=== PATIENT | female | born 1950 | race Hispanic/Latino ===

== ENCOUNTER 2018-03-20 17:51 | Inpatient (IN) | payer OTHER, MEDICARE ==
[~2018-03-20] VITALS: Ht 157.5 cm; Wt 100.8 kg
[2018-03-20 18:14] LABS: BASOPHILS % (AUTO) 0.2 % (0.0-5.0); EOSINOPHILS % (AUTO) 0.1 % (0.0-8.0); HEMATOCRIT 37.9 % (36-48); MEAN CORPUSCULAR HEMOGLOBIN 24.1 pg (27.0-33.0); MEAN CORPUSCULAR HGB CONC 31.9 g/dL (32.0-36.0); MEAN CORPUSCULAR VOLUME 75.7 fL (79-99); MONOCYTES % (AUTO) 2.7 % (3.0-13.0); PLATELET COUNT (AUTO) 291 K/uL (130-400); RED BLOOD CELL COUNT(AUTO) 5.01 MIL/uL (4.00-5.50); RED CELL DISTRIBUTION WIDTH 17.5 % (11.0-15.5); WHITE BLOOD COUNT (AUTO) 22.1 K/uL (4.8-10.8)
[2018-03-20 18:27] LABS: CREATININE 0.8 mg/dL (0.5-1.5); POTASSIUM 4.3 mmol/L (3.5-5.1)
[2018-03-20 18:31] LABS: BILIRUBIN,TOTAL 0.5 mg/dL (0.2-1.0); TOTAL PROTEIN, SERUM 7.8 g/dL (6.0-8.3)
[2018-03-20] MEDS ORDERED: SODIUM CHLORIDE 0.9% 1000ML 1,000 ML IV ONE (18:54)
[2018-03-20] MEDS ORDERED: ONDANSETRON HCL 4 MG/2 ML VIAL ONE (18:54)
[2018-03-20] MEDS ORDERED: PROMETHAZINE HCL 25 MG/ML 1ML AMPULE IM ONE (20:32)
[2018-03-20 20:52] LABS: APPEARANCE,URINE Clear (CLEAR); BILIRUBIN,URINE Negative (NEGATIVE); COLOR,URINE Yellow (YELLOW); GLUCOSE, URINE (UA) Negative (NEGATIVE); KETONES,URINE Trace mg/dL (NEGATIVE); LEUKOCYTE ESTERASE ,URINE Negative (NEGATIVE); NITRATE,URINE Negative (NEGATIVE); OCCULT BLOOD,URINE Negative (NEGATIVE); PH,URINE 5.5 (5.0-8.0); PROTEIN,URINE Trace (NEGATIVE); UROBILINOGEN,URINE 0.2 mg/dL (0.2-1.0)
[2018-03-20 21:02] LABS: BACTERIA,URINE Rare /HPF (None Seen); RBC,URINE 0-1 /HPF (0-1); SQUAMOUS EPITHELIAL CELL,UR Rare /HPF (0-2); WBC,URINE 0-1 /HPF (0-1)
[2018-03-20] MEDS ORDERED: LISINOPRIL 5 MG TABLET ONE (22:39)
[2018-03-20] MEDS ORDERED: PHARMACY COMMUNICATION MISC SCH (23:45)
[2018-03-20] MEDS ORDERED: PROMETHAZINE HCL 25 MG/ML 1ML AMPULE IM PRN (23:45)
[2018-03-20] MEDS ORDERED: MORPHINE SULFATE 2 MG/ML 1ML SYG IVP PRN (23:45)
[2018-03-21] MEDS ORDERED: ZOSYN 3.375GM+NS 50ML 50 ML IV ONE ×2 (01:01→07:32)
[2018-03-21] MEDS ORDERED: SODIUM CHLORIDE 0.9% 100 ML IV ONE ×2 (01:02→07:32)
[2018-03-21] MEDS ORDERED: PROMETHAZINE HCL 25 MG/ML 1ML AMPULE IM ONE (02:52)
[2018-03-21 06:14] LABS: BASOPHILS % (AUTO) 0.5 % (0.0-5.0); EOSINOPHILS % (AUTO) 0.1 % (0.0-8.0); HEMATOCRIT 36.8 % (36-48); LYMPHOCYTES % (AUTO) 4.9 % (21.0-51.0); MEAN CORPUSCULAR HEMOGLOBIN 24.2 pg (27.0-33.0); MEAN CORPUSCULAR HGB CONC 32.2 g/dL (32.0-36.0); MEAN CORPUSCULAR VOLUME 75.2 fL (79-99); MONOCYTES % (AUTO) 4.9 % (3.0-13.0); NEUTROPHILS % (AUTO) 89.6 % (40.0-77.0); PLATELET COUNT (AUTO) 337 K/uL (130-400); RED CELL DISTRIBUTION WIDTH 17.5 % (11.0-15.5); WHITE BLOOD COUNT (AUTO) 22.6 K/uL (4.8-10.8)
[2018-03-21 06:31] LABS: CREATININE 0.9 mg/dL (0.5-1.5); POTASSIUM 3.4 mmol/L (3.5-5.1)
[2018-03-21 06:37] LABS: BILIRUBIN,TOTAL 0.5 mg/dL (0.2-1.0); TOTAL PROTEIN, SERUM 7.5 g/dL (6.0-8.3)
[2018-03-21] MEDS ORDERED: ACETAMINOPHEN 325 MG TAB PO PRN (11:45)
[2018-03-21] MEDS ORDERED: HYDRALAZINE HCL 20 MG/ML VIAL IV PRN (11:45)
[2018-03-21 12:13] VITALS: BP 149/65
[2018-03-21] MEDS: LACTATED RINGERS 1000ML 1,000 ML IV SCH ×2 (12:26→13:05)
[2018-03-21] MEDS: FAMOTIDINE/PF 20 MG/2 ML VIAL IV SCH ×2 (12:26→21:11)
[2018-03-21] MEDS: ZOSYN 3.375GM+NS 50ML 50 ML IV SCH ×2 (15:18→23:25)
[2018-03-21 15:42] VITALS: BP 126/57
[2018-03-21] MEDS ORDERED: LACTULOSE 20 GM/30 ML UDCUP PO PRN (19:30)
[2018-03-21 20:00] VITALS: BP 101/54
[2018-03-21 23:31] VITALS: BP 134/68
[2018-03-22 04:39] VITALS: BP 143/64
[2018-03-22] MEDS: ZOSYN 3.375GM+NS 50ML 50 ML IV SCH ×3 (06:04→22:44)
[2018-03-22 06:14] LABS: BASOPHILS % (AUTO) 0.7 % (0.0-5.0); EOSINOPHILS % (AUTO) 0.9 % (0.0-8.0); HEMATOCRIT 35.8 % (36-48); LYMPHOCYTES % (AUTO) 20.4 % (21.0-51.0); MEAN CORPUSCULAR HEMOGLOBIN 23.6 pg (27.0-33.0); MEAN CORPUSCULAR HGB CONC 30.7 g/dL (32.0-36.0); MEAN CORPUSCULAR VOLUME 76.8 fL (79-99); MONOCYTES % (AUTO) 8.1 % (3.0-13.0); NEUTROPHILS % (AUTO) 69.9 % (40.0-77.0); PLATELET COUNT (AUTO) 285 K/uL (130-400); RED BLOOD CELL COUNT(AUTO) 4.66 MIL/uL (4.00-5.50); RED CELL DISTRIBUTION WIDTH 17.6 % (11.0-15.5)
[2018-03-22 06:22] LABS: POTASSIUM 3.4 mmol/L (3.5-5.1)
[2018-03-22 08:39] VITALS: BP 149/73
[2018-03-22] MEDS: FAMOTIDINE/PF 20 MG/2 ML VIAL IV SCH ×2 (10:11→21:16)
[2018-03-22] MEDS: LACTATED RINGERS 1000ML 1,000 ML IV SCH ×2 (10:12→17:19)
[2018-03-22 11:28] VITALS: BP 156/70
[2018-03-22] MEDS ORDERED: POTASSIUM CHLORIDE 20 MEQ ERTAB PO PRN (14:00)
[2018-03-22] MEDS ORDERED: LIDOCAINE HCL-MPF 1% 2ML VIAL IVP PRN (14:00)
[2018-03-22] MEDS ORDERED: POTASSIUM CHLORIDE 20MEQ/100ML 100 ML IV PRN (14:00)
[2018-03-22] MEDS ORDERED: POTASSIUM CHLORIDE 10% ELIXIR 20 MEQ/15 ML UDCUP PO PRN (14:00)
[2018-03-22] MEDS ORDERED: GLUCAGON 1MG KIT 1 MG ML IM PRN (15:30)
[2018-03-22] MEDS ORDERED: DEXTROSE 50%-WATER 50 ML DISP.SYRIN IV PRN (15:30)
[2018-03-22 16:28] VITALS: BP 143/72
[2018-03-22] MEDS: INSULIN HUMULIN R 100 UNIT/ML 3ML SQ SCH ×2 (16:30→21:00)
[2018-03-22 19:49] VITALS: BP 127/52
[2018-03-22] MEDS ORDERED: FURO20TA4 PO (23:13)
[2018-03-22] MEDS ORDERED: METO-391 PO (23:13)
[2018-03-22] MEDS ORDERED: ATOR10TA69 PO (23:13)
[2018-03-22] MEDS ORDERED: LOSA1TAB37 PO (23:13)
[2018-03-22] MEDS ORDERED: LINA5TAB PO (23:13)
[2018-03-22] MEDS ORDERED: ESOM20CA31 PO (23:13)
[2018-03-23 00:03] VITALS: BP 142/65
[2018-03-23 04:28] VITALS: BP 164/70
[2018-03-23] MEDS: ZOSYN 3.375GM+NS 50ML 50 ML IV SCH (06:21)
[2018-03-23 06:23] LABS: BASOPHILS % (AUTO) 0.6 % (0.0-5.0); EOSINOPHILS % (AUTO) 0.4 % (0.0-8.0); HEMATOCRIT 35.1 % (36-48); LYMPHOCYTES % (AUTO) 13.2 % (21.0-51.0); MEAN CORPUSCULAR HEMOGLOBIN 24.4 pg (27.0-33.0); MEAN CORPUSCULAR HGB CONC 31.9 g/dL (32.0-36.0); MEAN CORPUSCULAR VOLUME 76.5 fL (79-99); NEUTROPHILS % (AUTO) 80.8 % (40.0-77.0); PLATELET COUNT (AUTO) 291 K/uL (130-400); RED BLOOD CELL COUNT(AUTO) 4.59 MIL/uL (4.00-5.50)
[2018-03-23 06:46] LABS: CREATININE 0.9 mg/dL (0.5-1.5); POTASSIUM 3.7 mmol/L (3.5-5.1)
[2018-03-23 07:30] VITALS: BP 146/73
[2018-03-23] MEDS: INSULIN HUMULIN R 100 UNIT/ML 3ML SQ SCH ×3 (07:30→16:43)
[2018-03-23] MEDS ORDERED: LINAGLIPTIN 5 MG TABLET PO SCH (09:00)
[2018-03-23] MEDS ORDERED: METOPROLOL TARTRATE 25 MG TAB PO SCH (09:00)
[2018-03-23] MEDS ORDERED: LOSARTAN/HYDROCHLOROTHIAZIDE 50-12.5MG TABLET PO SCH (09:00)
[2018-03-23] MEDS ORDERED: PANTOPRAZOLE SODIUM 40 MG TABLET.DR PO SCH (09:00)
[2018-03-23] MEDS ORDERED: FUROSEMIDE 20 MG TABLET PO SCH (09:00)
[2018-03-23 11:00] VITALS: BP 164/68
[2018-03-23 16:00] VITALS: BP 157/71
[2018-03-23] MEDS ORDERED: ATORVASTATIN CALCIUM 10 MG TABLET PO SCH (21:00)
== END 2018-03-23 17:09 | disposition home or self-care (01) | DRG 392 ==
LOC: EDH 17:51 → EDHIP 22:20 → INTOOBSV 22:20 → OBSVTOIN 22:20 → 3CH 03-21 11:04
PROVIDERS: ADMIT Internal Medicine Critical Care Medicine; ATTEND Internal Medicine Critical Care Medicine
DX: K52.9 Noninfective gastroenteritis and colitis, unspecified (principal); E11.9 Type 2 diabetes mellitus without complications; I10 Essential (primary) hypertension; E78.5 Hyperlipidemia, unspecified; Z88.0 Allergy status to penicillin
CPT/HCPCS: 36415; 74176; 80048; 80053; 81001; 82948; 85025; 87040; J0360; J1815; J2405; J2543; J2550; J3490; J7030; J7120

== ENCOUNTER 2018-11-08 13:46 | Observation (INO) | payer OTHER, MEDICARE ==
[~2018-11-08] VITALS: Ht 152.4 cm; Wt 100.7 kg
[~2018-11-08 13:46] MED LIST: ATOR10TA69 PO; ESOM20CA31 PO; FURO20TA4 PO; LINA5TAB PO; LOSA1TAB37 PO; METO-391 PO
[2018-11-08] MEDS ORDERED: ONDANSETRON HCL 4 MG/2 ML VIAL ONE (14:15)
[2018-11-08] MEDS ORDERED: SODIUM CHLORIDE 0.9% 1000ML 1,000 ML IV ONE (14:15)
[2018-11-08 14:58] LABS: BASOPHILS % (AUTO) 0.2 % (0.0-5.0); EOSINOPHILS % (AUTO) 0.2 % (0.0-8.0); HEMATOCRIT 36.8 % (36-48); LYMPHOCYTES % (AUTO) 6.8 % (21.0-51.0); MEAN CORPUSCULAR HEMOGLOBIN 25.3 pg (27.0-33.0); MEAN CORPUSCULAR HGB CONC 32.1 g/dL (32.0-36.0); MEAN CORPUSCULAR VOLUME 78.6 fL (79-99); MONOCYTES % (AUTO) 5.6 % (3.0-13.0); NEUTROPHILS % (AUTO) 87.2 % (40.0-77.0); PLATELET COUNT (AUTO) 252 K/uL (130-400); RED BLOOD CELL COUNT(AUTO) 4.68 MIL/uL (4.00-5.50); RED CELL DISTRIBUTION WIDTH 16.8 % (11.0-15.5); WHITE BLOOD COUNT (AUTO) 17.6 K/uL (4.8-10.8)
[2018-11-08 15:16] LABS: CREATININE 1.2 mg/dL (0.5-1.5); POTASSIUM 3.1 mmol/L (3.5-5.1)
[2018-11-08 15:20] LABS: ALBUMIN 2.9 g/dL (3.5-5.0); BILIRUBIN,TOTAL 0.3 mg/dL (0.2-1.0); TOTAL PROTEIN, SERUM 7.3 g/dL (6.0-8.3)
[2018-11-08] MEDS ORDERED: POTASSIUM CHLORIDE 10% ELIXIR 20 MEQ/15 ML UDCUP ONE (16:05)
[2018-11-08 16:16] LABS: BAND NEUTROPHILS % (MANUAL) 15 % (0-2); LYMPHOCYTES % (MANUAL) 10 % (22-44); MAN.DIFF COMMENT-IMPRESSION MANUAL DIFFERENTIAL; METAMYELOCYTES % 1 % (0-0); MONOCYTES % (MANUAL) 1 % (2-9); SEGMENTED NEUTROPHILS % 73 % (40-70)
[2018-11-08] MEDS ORDERED: MORPHINE SULFATE 2 MG/ML 1ML SYG ONE (16:21)
[2018-11-08] MEDS ORDERED: METRONIDAZOLE 500MG/100ML BAG 100 ML ONE (18:33)
[2018-11-08] MEDS ORDERED: LACTATED RINGERS 1000ML 1,000 ML IV ONE (18:33)
[2018-11-08] MEDS: LACTATED RINGERS 1000ML 1,000 ML IV SCH (18:45)
[2018-11-08] MEDS ORDERED: DEXTROSE 50%-WATER 50 ML DISP.SYRIN IV PRN (18:45)
[2018-11-08] MEDS ORDERED: GLUCAGON 1MG KIT 1 MG ML IM PRN (18:45)
[2018-11-08] MEDS ORDERED: MORPHINE SULFATE 2 MG/ML 1ML SYG IVP PRN (18:45)
[2018-11-08] MEDS ORDERED: ONDANSETRON HCL 4 MG/2 ML VIAL IVP PRN (18:45)
[2018-11-08] MEDS ORDERED: MORPHINE SULFATE 4 MG/1ML SYG IVP PRN (18:45)
[2018-11-08] MEDS ORDERED: ACETAMINOPHEN 325 MG TAB PO PRN ×2 (18:45→23:30)
[2018-11-08 19:40] LABS: OCCULT BLOOD STOOL SINGLE ONLY POSITIVE (NEGATIVE)
[2018-11-08 19:55] VITALS: BP 129/55
--- NOTE | 2018-11-08 19:57 | NUR ---
NOTE PATIENT ARRIVED FROM ED VIA STRETCHER.
[2018-11-08] MEDS: METRONIDAZOLE 500MG/100ML BAG 100 ML IVPB SCH (20:17)
[2018-11-08] MEDS ORDERED: LEVOFLOXACIN 500 MG TABLET PO SCH (21:00)
[2018-11-08] MEDS ORDERED: INSLAN SQ ×2 (21:00)
[2018-11-08] MEDS ORDERED: INSU100C14 SQ (21:02)
[2018-11-08] MEDS ORDERED: DULA0.75 SQ (21:11)
[2018-11-08] MEDS ORDERED: ASPI-1181 PO (21:27)
[2018-11-08 22:58] LABS: APPEARANCE,URINE Clear (CLEAR); BILIRUBIN,URINE Negative (NEGATIVE); COLOR,URINE Dark Yellow (YELLOW); GLUCOSE, URINE (UA) Negative (NEGATIVE); KETONES,URINE Negative (NEGATIVE); LEUKOCYTE ESTERASE ,URINE Small (NEGATIVE); NITRATE,URINE Negative (NEGATIVE); OCCULT BLOOD,URINE Negative (NEGATIVE); PROTEIN,URINE Trace mg/dL (NEGATIVE); UROBILINOGEN,URINE 0.2 mg/dL (0.2-1.0)
[2018-11-08 23:08] LABS: BACTERIA,URINE Rare /HPF (None Seen); RBC,URINE None Seen /HPF (0-1); SQUAMOUS EPITHELIAL CELL,UR Many /HPF (0-2); WBC,URINE 0-1 /HPF (0-1)
[2018-11-09] VITALS (7 sets, daily range): BP systolic 109–127; BP diastolic 42–58
[2018-11-09] MEDS ORDERED: INSULIN R NPO SSI SQ SCH
[2018-11-09] MEDS: LACTATED RINGERS 1000ML 1,000 ML IV SCH ×3 (02:45→20:41)
[2018-11-09] MEDS: METRONIDAZOLE 500MG/100ML BAG 100 ML IVPB SCH ×3 (05:04→21:55)
[2018-11-09] MEDS: INSULIN HUMULIN R 100 UNIT/ML 3ML SQ SCH ×4 (05:36→20:42)
[2018-11-09 05:43] LABS: HEMATOCRIT 36.4 % (36-48); MEAN CORPUSCULAR HEMOGLOBIN 24.5 pg (27.0-33.0); NUCLEATED RED BLOOD CELLS 0.1 % (0.0-0.19); PLATELET COUNT (AUTO) 287 K/uL (130-400); RED BLOOD CELL COUNT(AUTO) 4.61 MIL/uL (4.00-5.50); WHITE BLOOD COUNT (AUTO) 18.2 K/uL (4.8-10.8)
[2018-11-09 06:05] LABS: CREATININE 1.4 mg/dL (0.5-1.5); MAGNESIUM 1.7 mg/dL (1.80-2.40)
--- NOTE | 2018-11-09 06:54 | NUR ---
MD ROMERO CONTACTED ANSWERING SERVICE FOR DR. CHAND AND ASKED TO PAGE ONCCHELSEY FOR HIM TO NOTIFY OF ABNORMAL LAB RESULT THIS AM.
--- NOTE | 2018-11-09 07:30 | NUR ---
NOTE NO CALL BACK YET FROM JOSE JOSEPH MD. REPORT GIVEN TO JUAN HERNANDEZ AND SHE WILL BE REPAGING TO HER PHONE.
--- NOTE | 2018-11-09 08:00 | NUR ---
RETURN CALL FROM KELLEY HERNANDEZ ORDERS RECEIVED FOR POTASSIUM AND MAG PROTOCOLS
[2018-11-09] MEDS ORDERED: LIDOCAINE HCL-MPF 1% 2ML VIAL IVP PRN (09:00)
[2018-11-09] MEDS ORDERED: MAGNESIUM 2GM PREMIX 50ML 50 ML IV PRN (09:00)
[2018-11-09] MEDS ORDERED: POTASSIUM CHLORIDE 20MEQ/100ML 100 ML IV PRN (09:00)
[2018-11-09] MEDS ORDERED: POTASSIUM CHLORIDE 20 MEQ ERTAB PO PRN (09:00)
[2018-11-09] MEDS: ENOXAPARIN SODIUM 40 MG/0.4 ML SYRINGE SQ SCH (09:48)
[2018-11-09] MEDS: PANTOPRAZOLE SODIUM 40 MG TABLET.DR PO SCH (09:48)
--- NOTE | 2018-11-09 10:48 | NUR ---
C JESSY ROUNDED ON PATIENT ORDERS TO INCREASE IV TO RATE TO 150 AND K+ AND MAG REPLACEMENT
--- NOTE | 2018-11-09 11:05 | NUR ---
INITIAL SPOKE W PT & DAUGHTER AT BEDSIDE. DAUGHTER WILL PROVIDE TRANSPORT PT WITH CANE & W/CHAIR AT HOME- HAS RAMP, HOME IS SAFE /ACCESSIBLE, PROVIDER SERVICE 25 HR WK, DECLINING SNF, WANTS TO RETURN HOME WITH CURRENT SERVICES UNLESS ABSOLUTELY NECESSARY Addendum: 11/10/18 at 0933 by ALEAH PAINTER RN CM Amended: Links added.
--- NOTE | 2018-11-09 11:06 | NUR ---
INITIAL IPLS SEE INTERVAL NOTE. GUZMAN ERWIN PT DECLININING SNF Addendum: 11/10/18 at 0937 by ALEAH PAINTER RN CM Amended: Links added.
--- NOTE | 2018-11-09 14:50 | NUR ---
DR NEW ROUNDED ON PATIENT ORDERS TO CHANGE IV LR RATE TO 100 CC/HR IMODIUM 2 MG EVERY 2 HOURS NEEDED FOR DIARRHEA PT FOR OOB , CHEM, MAG, PHOS LABS IN THE AM AND REPLACE MAG AND K+.
[2018-11-09] MEDS: LOPERAMIDE HCL 2 MG CAP PO PRN ×2 (17:30→20:40)
[2018-11-09] MEDS: POTASSIUM CHLORIDE 10% ELIXIR 20 MEQ/15 ML UDCUP PO PRN ×2 (17:33→21:55)
[2018-11-09 18:17] LABS: INR 1.07 (0.85-1.15); PARTIAL THROMBOPLASTIN TIME 36.2 SEC (26.3-35.5); PROTHROMBIN TIME 11.2 SEC (9.6-11.6)
[2018-11-10] MEDS: LOPERAMIDE HCL 2 MG CAP PO PRN (00:39)
[2018-11-10] MEDS: POTASSIUM CHLORIDE 10% ELIXIR 20 MEQ/15 ML UDCUP PO PRN (00:39)
[2018-11-10 03:40] VITALS: BP 129/59
[2018-11-10] MEDS: LACTATED RINGERS 1000ML 1,000 ML IV SCH ×3 (04:12→16:33)
[2018-11-10 05:31] LABS: BASOPHILS % (AUTO) 0.6 % (0.0-5.0); EOSINOPHILS % (AUTO) 1.1 % (0.0-8.0); HEMATOCRIT 33.4 % (36-48); LYMPHOCYTES % (AUTO) 13.4 % (21.0-51.0); MEAN CORPUSCULAR HEMOGLOBIN 24.7 pg (27.0-33.0); MEAN CORPUSCULAR HGB CONC 31.6 g/dL (32.0-36.0); MEAN CORPUSCULAR VOLUME 77.9 fL (79-99); MONOCYTES % (AUTO) 9.3 % (3.0-13.0); NEUTROPHILS % (AUTO) 75.6 % (40.0-77.0); PLATELET COUNT (AUTO) 270 K/uL (130-400); RED BLOOD CELL COUNT(AUTO) 4.28 MIL/uL (4.00-5.50); RED CELL DISTRIBUTION WIDTH 16.8 % (11.0-15.5); WHITE BLOOD COUNT (AUTO) 11.2 K/uL (4.8-10.8)
[2018-11-10] MEDS: METRONIDAZOLE 500MG/100ML BAG 100 ML IVPB SCH ×2 (06:00→14:00)
[2018-11-10 06:05] LABS: ALBUMIN 2.7 g/dL (3.5-5.0); BILIRUBIN,TOTAL 0.2 mg/dL (0.2-1.0); CREATININE 1.2 mg/dL (0.5-1.5); MAGNESIUM 2.3 mg/dL (1.80-2.40); PHOSPHORUS 2.4 mg/dL (2.5-4.9); POTASSIUM 3.6 mmol/L (3.5-5.1); TOTAL PROTEIN, SERUM 6.5 g/dL (6.0-8.3)
[2018-11-10] MEDS: INSULIN HUMULIN R 100 UNIT/ML 3ML SQ SCH ×3 (06:29→16:30)
[2018-11-10 07:54] VITALS: BP 133/76
[2018-11-10] MEDS: PANTOPRAZOLE SODIUM 40 MG TABLET.DR PO SCH (09:38)
[2018-11-10] MEDS: ENOXAPARIN SODIUM 40 MG/0.4 ML SYRINGE SQ SCH (09:40)
--- NOTE | 2018-11-10 10:44 | NUR ---
TORI JIMÉNEZ CNP ROUNDED ON PATIENT ORDERS RECEIVED FOR SOFT DIET AND IF TOLERATES MAY DISCHARGE THIS AFTERNOON
--- NOTE | 2018-11-10 10:46 | NUR ---
ORDERS TO FOLLOW-UP WITH DR KRAUSE OUTPATIENT
[2018-11-10 11:16] VITALS: BP 142/66
--- NOTE | 2018-11-10 16:15 | NUR ---
NEW ORDERS RECEIVED FOR FLAGYL 500MG PO EVERY 12 HOURS FOR 7 DAYS. SAYS MEDICATION CALLED TO PATIENT PHARMACY
[2018-11-10] MEDS ORDERED: INSULIN LISPRO 100 UNIT/ML 3ML SQ SCH (17:00)
--- NOTE | 2018-11-10 17:00 | NUR ---
PATIENT STATES THAT SHE DOES NOT KNOW WHO OR WHY THE DOCTOR WAS THERE TO SEE HER , DR HONG NOTIFIED AND SAID IF PATIENT DOES NOT WHAT TO FOLLOW IN CLINIC SHE DOES HAVE TO .
--- NOTE | 2018-11-10 17:30 | NUR ---
PATIENT AND DAUGHTER GIVEN DISCHARGE INSTRUCTIONS AND VERBALIZED UNDERSTANDING, MONITOR UNIT NOTIFIED OF PATIENT STATUS AND TELEMETRY REMOVED , IN REMOVED WITH CATHETER INTACT. FOLLOW-UP APPOINTMENT WITH DOCTOR KRAUSE , NO QUESTIONS OR CONCERNS AT THIS TIME, PATIENT TAKING BY WHEELCHAIR TO LOBBY
[2018-11-10] MEDS ORDERED: INSULIN GLARGINE 100 UNITS/ML 10 ML VIAL SQ SCH (21:00)
[2018-11-10] MEDS ORDERED: METOPROLOL TARTRATE 25 MG TAB PO SCH (21:00)
[2018-11-11] MEDS ORDERED: ATORVASTATIN CALCIUM 10 MG TABLET PO SCH (09:00)
[2018-11-11] MEDS ORDERED: ASPIRIN 81 MG EC TAB PO SCH (09:00)
[2018-11-11] MEDS ORDERED: PANTOPRAZOLE SODIUM 40 MG TABLET.DR PO SCH (09:00)
[2018-11-11] MEDS ORDERED: LINAGLIPTIN 5 MG TABLET PO SCH (09:00)
[2018-11-11] MEDS ORDERED: INSULIN GLARGINE 100 UNITS/ML 10 ML VIAL SQ SCH (09:00)
[2018-11-11] MEDS ORDERED: FUROSEMIDE 20 MG TABLET PO SCH (09:00)
[2018-11-17] MEDS ORDERED: DULAGLUTIDE 0.75 MG SQ SCH (09:00)
== END 2018-11-10 17:35 | disposition home or self-care (01) ==
LOC: EDH 13:46 → EDHIP 17:30 → 4CH 20:28 → 4BH 11-09 01:58
PROVIDERS: ADMIT Internal Medicine; ATTEND Internal Medicine
DX: K52.9 Noninfective gastroenteritis and colitis, unspecified (principal); I10 Essential (primary) hypertension; K76.0 Fatty (change of) liver, not elsewhere classified; E86.0 Dehydration; E11.9 Type 2 diabetes mellitus without complications; E78.5 Hyperlipidemia, unspecified; E66.9 Obesity, unspecified; F60.7 Dependent personality disorder; F41.1 Generalized anxiety disorder; F32.1 Major depressive disorder, single episode, moderate; Z79.4 Long term (current) use of insulin; Z88.0 Allergy status to penicillin; Z79.899 Other long term (current) drug therapy; Z90.49 Acquired absence of other specified parts of digestive tract
CPT/HCPCS: 36415 ×3; 74176; 80048; 80053 ×2; 81001; 82270; 82948 ×9; 83605; 83690; 83735 ×2; 84100; 84484; 85025 ×2; 85027; 85610; 85730; 87040 ×2; 87046; 87324; 93005; 96361; 96365; 96366 ×2; 96368; 96372 ×2; 96375 ×2; 99284; G0378 ×42; J1650 ×2; J2405 ×2; J3475; J3490 ×5; J7030; J7120 ×2

== ENCOUNTER 2019-01-23 17:02 | Inpatient (IN) | payer OTHER, MEDICARE ==
[~2019-01-23] VITALS: Ht 157.5 cm; Wt 101.3 kg
[~2019-01-23 17:02] MED LIST changes: +ASPI-1181 PO; +DULA0.75 SQ; +INSLAN SQ; +INSU100C14 SQ; -LOSA1TAB37 PO
[2019-01-23 17:30] LABS: BASOPHILS % (AUTO) 0.3 % (0.0-5.0); EOSINOPHILS % (AUTO) 0.1 % (0.0-8.0); HEMATOCRIT 34.1 % (36-48); LYMPHOCYTES % (AUTO) 1.8 % (21.0-51.0); MEAN CORPUSCULAR HEMOGLOBIN 25.2 pg (27.0-33.0); MEAN CORPUSCULAR HGB CONC 32.3 g/dL (32.0-36.0); MONOCYTES % (AUTO) 7.7 % (3.0-13.0); NEUTROPHILS % (AUTO) 90.1 % (40.0-77.0); PLATELET COUNT (AUTO) 256 K/uL (130-400); RED BLOOD CELL COUNT(AUTO) 4.36 MIL/uL (4.00-5.50); RED CELL DISTRIBUTION WIDTH 16.2 % (11.0-15.5); WHITE BLOOD COUNT (AUTO) 26.8 K/uL (4.8-10.8)
[2019-01-23 17:39] LABS: CARBON DIOXIDE 28 mmol/L (21-32); CHLORIDE 96 mmol/L (101-111); CREATININE 1.4 mg/dL (0.5-1.5); GLOMERULAR FILTR. RATE CALC 40 mL/min (>60); GLUCOSE,RANDOM 153 mg/dL (70-105); POTASSIUM 3.4 mmol/L (3.5-5.1); SODIUM SERUM 134 mmol/L (136-145); UREA NITROGEN, BLOOD 22 mg/dL (7-18)
[2019-01-23 17:43] LABS: INR 1.11 (0.85-1.15); PARTIAL THROMBOPLASTIN TIME 30.6 SEC (26.3-35.5); PROTHROMBIN TIME 11.6 SEC (9.6-11.6)
[2019-01-23 17:50] LABS: ALANINE AMINOTRANSFERASE 99 U/L (12-78); ALBUMIN 2.8 g/dL (3.5-5.0); ASPARTATE AMINOTRANSFERASE 107 U/L (10-37); BILIRUBIN,TOTAL 1.5 mg/dL (0.2-1.0); CREATINE KINASE, TOTAL 72 U/L (21-232); MYOGLOBIN 58 ng/mL (10-92); TOTAL PROTEIN, SERUM 7.9 g/dL (6.0-8.3); TROPONIN I < 0.04 ng/mL (0.00-0.06)
[2019-01-23 18:02] LABS: APPEARANCE,URINE Cloudy (CLEAR); BILIRUBIN,URINE Small (NEGATIVE); COLOR,URINE Dark Yellow (YELLOW); GLUCOSE, URINE (UA) Negative (NEGATIVE); KETONES,URINE Negative (NEGATIVE); LEUKOCYTE ESTERASE ,URINE Trace (NEGATIVE); NITRATE,URINE Negative (NEGATIVE); OCCULT BLOOD,URINE Nonhemolyzed Trace (NEGATIVE); PROTEIN,URINE POS 1+ mg/dL (NEGATIVE)
[2019-01-23 18:10] LABS: AMORPHOUS SEDIMENT,UR Moderate /LPF (None Seen); BACTERIA,URINE Few /HPF (None Seen); MUCUS,URINE Few LPF (None Seen)
[2019-01-23] MEDS ORDERED: LEVOFLOXACIN 750 MG/D5W 150 ML 150 ML ONE (18:28)
[2019-01-23] MEDS ORDERED: ACETAMINOPHEN 325 MG TAB ONE (18:28)
[2019-01-23] MEDS ORDERED: SODIUM CHLORIDE 0.9% 1000ML 1,000 ML IV ONE (18:29)
[2019-01-23] MEDS ORDERED: SODIUM CHLORIDE 0.9% 1000ML 2,000 ML IV ONE (19:18)
[2019-01-23] MEDS ORDERED: IBUPROFEN 400 MG TABLET PO PRN (20:15)
[2019-01-23] MEDS ORDERED: LACTATED RINGERS 1000ML 1,000 ML IV SCH (20:15)
[2019-01-23] MEDS ORDERED: ONDANSETRON HCL 4 MG/2 ML VIAL IVP PRN (20:15)
[2019-01-23] MEDS ORDERED: POTASSIUM CHLORIDE 20MEQ/100ML 100 ML IV PRN (20:15)
[2019-01-23] MEDS ORDERED: TEMAZEPAM 15 MG CAPSULE PO PRN (20:15)
[2019-01-23] MEDS ORDERED: POTASSIUM CHLORIDE 10% ELIXIR 20 MEQ/15 ML UDCUP PO PRN (20:15)
[2019-01-23] MEDS ORDERED: LIDOCAINE HCL-MPF 1% 2ML VIAL IJ PRN (20:15)
[2019-01-23] MEDS ORDERED: METRONIDAZOLE 500MG/100ML BAG 100 ML ONE (20:50)
[2019-01-23] MEDS ORDERED: FAMOTIDINE/PF 20 MG/2 ML VIAL IV ONE (20:51)
[2019-01-23] MEDS ORDERED: OSELTAMIVIR PHOSPHATE 75 MG CAP ONE (20:51)
[2019-01-23] MEDS ORDERED: LACTATED RINGERS 1000ML 1,000 ML IV ONE (23:01)
[2019-01-24] MEDS ORDERED: ONDANSETRON HCL 4 MG/2 ML VIAL ONE (05:19)
[2019-01-24 05:59] LABS: HEMATOCRIT 31.2 % (36-48); MEAN CORPUSCULAR HEMOGLOBIN 25.4 pg (27.0-33.0); MEAN CORPUSCULAR HGB CONC 32.6 g/dL (32.0-36.0); PLATELET COUNT (AUTO) 229 K/uL (130-400); RED BLOOD CELL COUNT(AUTO) 3.99 MIL/uL (4.00-5.50); RED CELL DISTRIBUTION WIDTH 16.4 % (11.0-15.5); WHITE BLOOD COUNT (AUTO) 20.8 K/uL (4.8-10.8)
[2019-01-24 06:07] LABS: CREATININE 1.1 mg/dL (0.5-1.5); POTASSIUM 3.4 mmol/L (3.5-5.1)
[2019-01-24 07:26] VITALS: BP 148/87
[2019-01-24] MEDS: INSULIN R PO SS1 SQ SCH ×4 (07:30→20:36)
[2019-01-24] MEDS ORDERED: METRONIDAZOLE 500MG/100ML BAG 100 ML ONE (08:42)
[2019-01-24] MEDS ORDERED: OSELTAMIVIR PHOSPHATE 75 MG CAP ONE (08:43)
[2019-01-24] MEDS: METRONIDAZOLE 500MG/100ML BAG 100 ML IVPB SCH ×3 (09:00→20:36)
[2019-01-24] MEDS: OSELTAMIVIR PHOSPHATE 75 MG CAP PO SCH ×2 (09:00→20:35)
[2019-01-24] MEDS: FAMOTIDINE/PF 20 MG/2 ML VIAL IV SCH (09:46)
[2019-01-24 13:15] VITALS: BP 159/71
[2019-01-24] MEDS ORDERED: LACTATED RINGERS 1000ML 1,000 ML IV SCH (15:16)
[2019-01-24] MEDS ORDERED: DEXTROSE 50%-WATER 50 ML DISP.SYRIN IV PRN (15:30)
[2019-01-24] MEDS ORDERED: HYDROCODONE/ACETAMINOPHEN 5/325 MG TAB PO PRN (15:30)
[2019-01-24] MEDS ORDERED: GLUCAGON 1MG KIT 1 MG ML IM PRN (15:30)
[2019-01-24] MEDS ORDERED: POTASSIUM CHLORIDE 20MEQ/100ML 100 ML IV PRN (15:30)
[2019-01-24 15:37] VITALS: BP 124/77
[2019-01-24] MEDS: MEROPENEM 1 GM VIAL IVP SCH ×2 (16:03→23:44)
[2019-01-24] MEDS: POTASSIUM CHLORIDE 20 MEQ ERTAB PO PRN (16:30)
[2019-01-24] MEDS ORDERED: LEVOFLOXACIN 500 MG/D5W 100 ML 100 ML IV SCH (18:00)
[2019-01-24] MEDS: SODIUM CHLORIDE 0.9% 1000ML 1,000 ML IV SCH (18:08)
--- NOTE | 2019-01-24 18:17 | NUR ---
cm note met with patient and states resides at home with daughter. ambulates with cane, has provider 33hrs/week. daughter transports to md. no dc needs. dc plan is back to home. Addendum: 01/24/19 at 1819 by LUIZA BELLO CM Amended: Links added.
[2019-01-24 19:30] VITALS: BP 140/69
[2019-01-24] MEDS: METOPROLOL TARTRATE 25 MG TAB PO SCH (20:35)
[2019-01-24] MEDS: INSULIN GLARGINE 100 UNITS/ML 10 ML VIAL SQ SCH (20:36)
[2019-01-25] VITALS (7 sets, daily range): BP systolic 113–153; BP diastolic 50–70
[2019-01-25] MEDS: ACETAMINOPHEN 325 MG TAB PO PRN (01:27)
[2019-01-25] MEDS: SODIUM CHLORIDE 0.9% 1000ML 1,000 ML IV SCH ×3 (01:30→20:41)
[2019-01-25 04:24] LABS: BASOPHILS % (AUTO) 0.3 % (0.0-5.0); EOSINOPHILS % (AUTO) 0.5 % (0.0-8.0); HEMATOCRIT 29.6 % (36-48); LYMPHOCYTES % (AUTO) 6.1 % (21.0-51.0); MEAN CORPUSCULAR HEMOGLOBIN 25.1 pg (27.0-33.0); MEAN CORPUSCULAR HGB CONC 32.2 g/dL (32.0-36.0); MEAN CORPUSCULAR VOLUME 77.9 fL (79-99); NEUTROPHILS % (AUTO) 86.1 % (40.0-77.0); PLATELET COUNT (AUTO) 230 K/uL (130-400); RED CELL DISTRIBUTION WIDTH 16.4 % (11.0-15.5); WHITE BLOOD COUNT (AUTO) 16.2 K/uL (4.8-10.8)
[2019-01-25 04:30] LABS: POTASSIUM 3.3 mmol/L (3.5-5.1)
[2019-01-25] MEDS: METRONIDAZOLE 500MG/100ML BAG 100 ML IVPB SCH (06:14)
[2019-01-25] MEDS: MEROPENEM 1 GM VIAL IVP SCH ×3 (06:14→22:32)
[2019-01-25] MEDS: POTASSIUM CHLORIDE 20 MEQ ERTAB PO PRN ×2 (06:15→08:10)
[2019-01-25] MEDS: INSULIN R PO SS1 SQ SCH ×4 (06:16→20:39)
--- NOTE | 2019-01-25 08:00 | NUR ---
AM NOTE Awake, alert, and oriented x3. Denies any pain or shortness of breath. Plan of care discussed, verbalized understanding. Sinus mechanism in 80s. Daughter at bedside.
[2019-01-25] MEDS: PANTOPRAZOLE SODIUM 40 MG TABLET.DR PO SCH (08:10)
[2019-01-25] MEDS: ASPIRIN 81 MG EC TAB PO SCH (08:10)
[2019-01-25] MEDS: ATORVASTATIN CALCIUM 10 MG TABLET PO SCH (08:10)
[2019-01-25] MEDS: FAMOTIDINE/PF 20 MG/2 ML VIAL IV SCH (08:10)
[2019-01-25] MEDS: METOPROLOL TARTRATE 25 MG TAB PO SCH ×2 (08:10→20:40)
[2019-01-25] MEDS: OSELTAMIVIR PHOSPHATE 75 MG CAP PO SCH ×2 (08:10→20:40)
[2019-01-25] MEDS: ENOXAPARIN SODIUM 40 MG/0.4 ML SYRINGE SQ SCH (08:11)
[2019-01-25] MEDS: INSULIN LISPRO 100 UNIT/ML 3ML SQ SCH ×3 (08:17→16:16)
[2019-01-25] MEDS: INSULIN GLARGINE 100 UNITS/ML 10 ML VIAL SQ SCH ×2 (08:20→20:56)
[2019-01-25] MEDS ORDERED: FUROSEMIDE 20 MG TABLET PO SCH (09:00)
--- NOTE | 2019-01-25 11:10 | NUR ---
MD VISIT Dr. Villagran in to see pt, plan of care discussed, verbalized understanding.
[2019-01-26 03:43] VITALS: BP 168/68
[2019-01-26 03:48] LABS: BASOPHILS % (AUTO) 0.4 % (0.0-5.0); EOSINOPHILS % (AUTO) 0.6 % (0.0-8.0); HEMATOCRIT 30.7 % (36-48); LYMPHOCYTES % (AUTO) 10.2 % (21.0-51.0); MEAN CORPUSCULAR HEMOGLOBIN 24.7 pg (27.0-33.0); MEAN CORPUSCULAR HGB CONC 31.9 g/dL (32.0-36.0); MEAN CORPUSCULAR VOLUME 77.5 fL (79-99); MONOCYTES % (AUTO) 7.2 % (3.0-13.0); NEUTROPHILS % (AUTO) 81.6 % (40.0-77.0); PLATELET COUNT (AUTO) 252 K/uL (130-400); RED BLOOD CELL COUNT(AUTO) 3.96 MIL/uL (4.00-5.50); RED CELL DISTRIBUTION WIDTH 16.1 % (11.0-15.5); WHITE BLOOD COUNT (AUTO) 13.1 K/uL (4.8-10.8)
[2019-01-26 03:58] LABS: CREATININE 0.9 mg/dL (0.5-1.5); MAGNESIUM 1.9 mg/dL (1.80-2.40); PHOSPHORUS 2.2 mg/dL (2.5-4.9); POTASSIUM 3.5 mmol/L (3.5-5.1)
[2019-01-26] MEDS: INSULIN R PO SS1 SQ SCH ×4 (05:49→21:00)
[2019-01-26] MEDS: MEROPENEM 1 GM VIAL IVP SCH (06:34)
[2019-01-26 07:00] VITALS: BP_SYST 132; BP_SYST 163; BP_DIAS 76; BP_DIAS 78
[2019-01-26] MEDS: INSULIN LISPRO 100 UNIT/ML 3ML SQ SCH ×3 (08:00→18:48)
[2019-01-26] MEDS: ENOXAPARIN SODIUM 40 MG/0.4 ML SYRINGE SQ SCH (08:59)
[2019-01-26] MEDS: OSELTAMIVIR PHOSPHATE 75 MG CAP PO SCH ×2 (09:00→22:51)
[2019-01-26] MEDS: PANTOPRAZOLE SODIUM 40 MG TABLET.DR PO SCH (09:00)
[2019-01-26] MEDS: INSULIN GLARGINE 100 UNITS/ML 10 ML VIAL SQ SCH ×2 (09:00→21:00)
[2019-01-26] MEDS: ATORVASTATIN CALCIUM 10 MG TABLET PO SCH (09:00)
[2019-01-26] MEDS: FAMOTIDINE/PF 20 MG/2 ML VIAL IV SCH (09:03)
[2019-01-26] MEDS: METOPROLOL TARTRATE 25 MG TAB PO SCH ×2 (09:04→22:51)
[2019-01-26] MEDS: ASPIRIN 81 MG EC TAB PO SCH (09:04)
[2019-01-26 11:00] VITALS: BP 156/59
--- NOTE | 2019-01-26 11:45 | NUR ---
Allergy Pt states she is allergic to pcn. She states she vomits extensively. notified. Pending response.
[2019-01-26] MEDS: SODIUM CHLORIDE 0.9% 1000ML 1,000 ML IV SCH ×2 (12:23→23:52)
--- NOTE | 2019-01-26 12:44 | NUR ---
ABX Clarification Per Dr. Aga morrow to give Rocephin.
[2019-01-26] MEDS: CEFTRIAXONE SODIUM 2 GM VIAL IVP SCH (13:00)
--- NOTE | 2019-01-26 13:36 | NUR ---
Pt Update Pt transfer from room 207 to 428 at this time, condition stable, pt pending abx, nursing will continue to follow up.
[2019-01-26 16:00] VITALS: BP 169/72
--- NOTE | 2019-01-26 17:00 | NUR ---
FOLLOW UP ON DC PLAN MET W PT AND DAUGHTER- KNOWN TO THIS CM FOR LAST ADMIT- PT WILL VERY FLAT AFFECT, PT DAUGHTER STATES SHE JUST WANTS TO GO [place]. ON O2- QUESITONED WHY, STATS VERY WEAK, SOB. REQUESTED ORDER FOR PT. ADVISED PT AND DAUGGTER IF SHOWS A NEED FOR ABX MAY NEED TO GO TO A FACLITY FOR ABX/PTX. WILL FOLLOW IN AM
[2019-01-26] MEDS: ACETAMINOPHEN 325 MG TAB PO PRN (18:35)
[2019-01-26 19:00] VITALS: BP 146/63
[2019-01-27] VITALS (7 sets, daily range): BP systolic 133–172; BP diastolic 57–76
[2019-01-27 05:33] LABS: CREATININE 0.9 mg/dL (0.5-1.5); POTASSIUM 3.6 mmol/L (3.5-5.1)
[2019-01-27 05:47] LABS: MEAN CORPUSCULAR HEMOGLOBIN 24.9 pg (27.0-33.0); MEAN CORPUSCULAR HGB CONC 31.8 g/dL (32.0-36.0); MEAN CORPUSCULAR VOLUME 78.3 fL (79-99); PLATELET COUNT (AUTO) 268 K/uL (130-400); RED BLOOD CELL COUNT(AUTO) 3.83 MIL/uL (4.00-5.50); RED CELL DISTRIBUTION WIDTH 16.6 % (11.0-15.5)
[2019-01-27] MEDS: INSULIN R PO SS1 SQ SCH ×4 (06:27→20:25)
[2019-01-27] MEDS: INSULIN LISPRO 100 UNIT/ML 3ML SQ SCH ×3 (08:00→17:29)
[2019-01-27] MEDS: FAMOTIDINE/PF 20 MG/2 ML VIAL IV SCH (10:43)
[2019-01-27] MEDS: ATORVASTATIN CALCIUM 10 MG TABLET PO SCH (10:44)
[2019-01-27] MEDS: ENOXAPARIN SODIUM 40 MG/0.4 ML SYRINGE SQ SCH (10:44)
[2019-01-27] MEDS: METOPROLOL TARTRATE 25 MG TAB PO SCH ×2 (10:44→20:06)
[2019-01-27] MEDS: ASPIRIN 81 MG EC TAB PO SCH (10:44)
[2019-01-27] MEDS: OSELTAMIVIR PHOSPHATE 75 MG CAP PO SCH ×2 (10:44→20:06)
[2019-01-27] MEDS: PANTOPRAZOLE SODIUM 40 MG TABLET.DR PO SCH (10:48)
[2019-01-27] MEDS: INSULIN GLARGINE 100 UNITS/ML 10 ML VIAL SQ SCH ×2 (11:09→20:26)
[2019-01-27 12:39] LABS: CREATININE 0.8 mg/dL (0.5-1.5); POTASSIUM 3.3 mmol/L (3.5-5.1)
[2019-01-27] MEDS: SODIUM CHLORIDE 0.9% 1000ML 1,000 ML IV SCH (13:13)
[2019-01-27] MEDS: CEFTRIAXONE SODIUM 2 GM VIAL IVP SCH (13:13)
--- NOTE | 2019-01-27 17:00 | NUR ---
IMPROVING UPDATED PT AND DAUGHTER- BCULS REPEAT NEG X 24 HRS- OFF O2, NEEDS TO MOBILIZE, POSS DC HOME IF MOVING WELL AND NO IV ABX NEEDS. PT AGAIN WITH FLAT AFFECT,BROUGHT UP SUBJECT MAY BE DEPRESSED? DAUGHTER STATES NO, MOM IS ALWAYS LIKE THAT
[2019-01-27] MEDS ORDERED: LEVO750T46 PO (18:52)
[2019-01-27] MEDS ORDERED: FUROSEMIDE 10 MG/ML 4ML VIAL IV SCH (20:20)
[2019-01-28 03:45] VITALS: BP 148/63
[2019-01-28 06:06] LABS: HEMATOCRIT 32.1 % (36-48); MEAN CORPUSCULAR HGB CONC 32.6 g/dL (32.0-36.0); MEAN CORPUSCULAR VOLUME 76.8 fL (79-99); PLATELET COUNT (AUTO) 356 K/uL (130-400); RED BLOOD CELL COUNT(AUTO) 4.18 MIL/uL (4.00-5.50); RED CELL DISTRIBUTION WIDTH 16.3 % (11.0-15.5)
[2019-01-28 06:27] LABS: POTASSIUM 3.2 mmol/L (3.5-5.1)
[2019-01-28 07:16] VITALS: BP 144/54
[2019-01-28] MEDS: INSULIN R PO SS1 SQ SCH ×4 (07:30→20:19)
[2019-01-28 07:33] LABS: BASOPHILS % (MANUAL) 2 % (0-2); EOSINOPHILS % (MANUAL) 1 % (1-6); LYMPHOCYTES % (MANUAL) 11 % (22-44); MAN.DIFF COMMENT-IMPRESSION MANUAL DIFFERENTIAL; MONOCYTES % (MANUAL) 3 % (2-9); PLATELET MORPHOLOGY COMMENT ADEQUATE; SEGMENTED NEUTROPHILS % 83 % (40-70)
[2019-01-28] MEDS: FAMOTIDINE/PF 20 MG/2 ML VIAL IV SCH (09:16)
[2019-01-28] MEDS: METOPROLOL TARTRATE 25 MG TAB PO SCH ×2 (09:16→20:57)
[2019-01-28] MEDS: ATORVASTATIN CALCIUM 10 MG TABLET PO SCH (09:16)
[2019-01-28] MEDS: OSELTAMIVIR PHOSPHATE 75 MG CAP PO SCH (09:16)
[2019-01-28] MEDS: ASPIRIN 81 MG EC TAB PO SCH (09:16)
[2019-01-28] MEDS: PANTOPRAZOLE SODIUM 40 MG TABLET.DR PO SCH (09:16)
[2019-01-28] MEDS: ENOXAPARIN SODIUM 40 MG/0.4 ML SYRINGE SQ SCH (09:20)
[2019-01-28] MEDS: INSULIN LISPRO 100 UNIT/ML 3ML SQ SCH ×3 (09:32→16:43)
[2019-01-28] MEDS: INSULIN GLARGINE 100 UNITS/ML 10 ML VIAL SQ SCH ×2 (09:33→22:12)
[2019-01-28 10:37] VITALS: BP 166/71
[2019-01-28] MEDS: CEFTRIAXONE SODIUM 2 GM VIAL IVP SCH (14:23)
[2019-01-28] MEDS: METRONIDAZOLE 500 MG TABLET PO SCH ×2 (15:37→20:57)
[2019-01-28 15:53] VITALS: BP 155/65
[2019-01-28] MEDS ORDERED: LEVO750T46 PO (16:42)
[2019-01-28 19:58] VITALS: BP 152/64
[2019-01-28 23:54] VITALS: BP 151/59
[2019-01-29] MEDS: POTASSIUM CHLORIDE 20 MEQ ERTAB PO PRN ×2 (00:58→03:06)
[2019-01-29 04:00] VITALS: BP 158/76
[2019-01-29] MEDS: INSULIN R PO SS1 SQ SCH ×3 (06:14→16:30)
[2019-01-29 07:30] VITALS: BP 172/73
[2019-01-29 07:41] LABS: HEMATOCRIT 31.6 % (36-48); MEAN CORPUSCULAR HEMOGLOBIN 24.9 pg (27.0-33.0); MEAN CORPUSCULAR HGB CONC 31.9 g/dL (32.0-36.0); MEAN CORPUSCULAR VOLUME 77.9 fL (79-99); NUCLEATED RED BLOOD CELLS 0.1 % (0.0-0.19); PLATELET COUNT (AUTO) 347 K/uL (130-400); RED BLOOD CELL COUNT(AUTO) 4.05 MIL/uL (4.00-5.50); RED CELL DISTRIBUTION WIDTH 16.7 % (11.0-15.5); WHITE BLOOD COUNT (AUTO) 13.2 K/uL (4.8-10.8)
[2019-01-29 07:50] LABS: CREATININE 0.8 mg/dL (0.5-1.5); POTASSIUM 3.7 mmol/L (3.5-5.1)
[2019-01-29] MEDS: METRONIDAZOLE 500 MG TABLET PO SCH ×2 (08:33→13:15)
[2019-01-29] MEDS: METOPROLOL TARTRATE 25 MG TAB PO SCH (08:33)
[2019-01-29] MEDS: ASPIRIN 81 MG EC TAB PO SCH (08:33)
[2019-01-29] MEDS: FAMOTIDINE/PF 20 MG/2 ML VIAL IV SCH (08:33)
[2019-01-29] MEDS: PANTOPRAZOLE SODIUM 40 MG TABLET.DR PO SCH (08:33)
[2019-01-29] MEDS: ATORVASTATIN CALCIUM 10 MG TABLET PO SCH (08:34)
[2019-01-29] MEDS: INSULIN LISPRO 100 UNIT/ML 3ML SQ SCH ×3 (08:43→17:00)
[2019-01-29] MEDS: INSULIN GLARGINE 100 UNITS/ML 10 ML VIAL SQ SCH (08:44)
[2019-01-29] MEDS: ENOXAPARIN SODIUM 40 MG/0.4 ML SYRINGE SQ SCH (08:45)
[2019-01-29 11:00] VITALS: BP 164/75
[2019-01-29] MEDS ORDERED: POTASSIUM CHLORIDE 10% ELIXIR 20 MEQ/15 ML UDCUP PO PRN (11:15)
[2019-01-29] MEDS ORDERED: LIDOCAINE HCL-MPF 1% 2ML VIAL IV PRN (11:15)
[2019-01-29] MEDS ORDERED: POTASSIUM CHLORIDE 20MEQ/100ML 100 ML IV PRN (11:15)
[2019-01-29] MEDS ORDERED: POTASSIUM CHLORIDE 20 MEQ ERTAB PO PRN (11:15)
[2019-01-29] MEDS: CEFTRIAXONE SODIUM 2 GM VIAL IVP SCH (13:15)
[2019-01-29] MEDS: ACETAMINOPHEN 325 MG TAB PO PRN (14:24)
[2019-01-29 15:15] VITALS: BP 150/65
== END 2019-01-29 17:54 | disposition home or self-care (01) | DRG 871 ==
LOC: EDH 17:02 → EDHIP 18:35 → 2BH 01-24 13:38 → 4AH 01-26 13:30 → 4DH 01-28 08:13 → 4CH 01-28 20:47
PROVIDERS: ADMIT Internal Medicine Critical Care Medicine; ATTEND Internal Medicine Critical Care Medicine
DX: A41.51 Sepsis due to Escherichia coli [E. coli] (principal); R65.21 Severe sepsis with septic shock; N39.0 Urinary tract infection, site not specified; Z68.41 Body mass index [BMI] 40.0-44.9, adult; E87.6 Hypokalemia; D64.9 Anemia, unspecified; E11.51 Type 2 diabetes mellitus with diabetic peripheral angiopathy without gangrene; E66.01 Morbid (severe) obesity due to excess calories; E78.5 Hyperlipidemia, unspecified; H40.9 Unspecified glaucoma; I10 Essential (primary) hypertension; I25.10 Atherosclerotic heart disease of native coronary artery without angina pectoris; J30.2 Other seasonal allergic rhinitis; J44.9 Chronic obstructive pulmonary disease, unspecified; K21.9 Gastro-esophageal reflux disease without esophagitis; K52.9 Noninfective gastroenteritis and colitis, unspecified; Z88.0 Allergy status to penicillin; Z91.018 Allergy to other foods; Z79.4 Long term (current) use of insulin; Z90.710 Acquired absence of both cervix and uterus; Z90.5 Acquired absence of kidney; Z90.722 Acquired absence of ovaries, bilateral; Z83.3 Family history of diabetes mellitus
CPT/HCPCS: 36415; 71045; 74176; 76705; 80048; 80053; 81001; 82550; 82948; 83036; 83605; 83735; 83874; 83880; 84100; 84145; 84484; 85025; 85027; 85610; 85730; 87040; 87077; 87088; 87186; 87324; 87338; 87804; 93005; 97039; G0378; J0696; J1650; J1940; J1956; J2185; J2405; J3490; J7030; J7120

== ENCOUNTER 2021-03-14 14:26 | Emergency (ER) | payer OTHER, MEDICARE ==
[~2021-03-14] VITALS: Ht 157.5 cm; Wt 108.9 kg
[~2021-03-14 14:26] MED LIST changes: -ASPI-1181 PO; +ASPI-1443 PO; -DULA0.75 SQ; +LEVO750T46 PO; -LINA5TAB PO
[2021-03-14] MEDS ORDERED: ONDANSETRON 4MG INJ ONE (14:37)
[2021-03-14] MEDS ORDERED: 0.9%NACL 1000ML 1,000 ML IV ONE ×2 (14:38→15:00)
[2021-03-14] MEDS ORDERED: ONDANSETRON 4MG INJ IVP ONE (15:00)
[2021-03-14 15:47] LABS: BASOPHILS % (AUTO) 0.3 % (0.0-5.0); HEMATOCRIT 37.5 % (36-48); LYMPHOCYTES % (AUTO) 5.3 % (21.0-51.0); MEAN CORPUSCULAR HEMOGLOBIN 23.4 pg (27.0-33.0); MEAN CORPUSCULAR HGB CONC 30.7 g/dL (32.0-36.0); MEAN CORPUSCULAR VOLUME 76.4 fL (79-99); MONOCYTES % (AUTO) 3.4 % (3.0-13.0); NEUTROPHILS % (AUTO) 90.5 % (40.0-77.0); PLATELET COUNT (AUTO) 319 K/uL (130-400); RED BLOOD CELL COUNT(AUTO) 4.91 MIL/uL (4.00-5.50); RED CELL DISTRIBUTION WIDTH 16.7 % (11.0-15.5); WHITE BLOOD COUNT (AUTO) 19.4 K/uL (4.8-10.8)
[2021-03-14 15:55] LABS: CREATININE 1.1 mg/dL (0.5-1.5); POTASSIUM 3.8 mmol/L (3.5-5.1)
[2021-03-14 15:59] LABS: ALBUMIN 3.5 g/dL (3.5-5.0); BILIRUBIN,TOTAL 0.5 mg/dL (0.2-1.0); TOTAL PROTEIN, SERUM 8.5 g/dL (6.0-8.3)
[2021-03-14] MEDS ORDERED: IOHEXOL-350 75 ML VIAL IV ONE (16:22)
[2021-03-14 17:24] LABS: APPEARANCE,URINE Clear (CLEAR); BILIRUBIN,URINE Negative (NEGATIVE); COLOR,URINE Yellow (YELLOW); GLUCOSE, URINE (UA) TRACE mg/dL (NEGATIVE); KETONES,URINE Negative (NEGATIVE); LEUKOCYTE ESTERASE ,URINE Negative (NEGATIVE); NITRATE,URINE Negative (NEGATIVE); OCCULT BLOOD,URINE Negative (NEGATIVE); PH,URINE 5.5 (5.0-8.0); PROTEIN,URINE POS 2+ mg/dL (NEGATIVE)
[2021-03-14 17:35] LABS: BACTERIA,URINE Rare /HPF (None Seen); RBC,URINE 0-1 /HPF (0-1); SQUAMOUS EPITHELIAL CELL,UR Few /HPF (0-2); WBC,URINE 0-1 /HPF (0-1)
[2021-03-14] MEDS ORDERED: FAMO20TA8 PO (18:03)
[2021-03-14] MEDS ORDERED: METR375C2 PO (18:03)
[2021-03-14 18:35] VITALS: BP 168/49
== END 2021-03-14 18:55 | disposition home or self-care (01) ==
LOC: EDH 14:26
DX: A08.4 Viral intestinal infection, unspecified (principal); K57.90 Diverticulosis of intestine, part unspecified, without perforation or abscess without bleeding; E11.9 Type 2 diabetes mellitus without complications; I10 Essential (primary) hypertension; J44.9 Chronic obstructive pulmonary disease, unspecified; Z79.4 Long term (current) use of insulin; Z79.82 Long term (current) use of aspirin; Z79.899 Other long term (current) drug therapy; Z88.0 Allergy status to penicillin
CPT/HCPCS: 36415; 74177; 80053; 81001; 83690; 84484; 85025; 93005; 96361; 96374; 99285; J2405; J7030; Q9967

== ENCOUNTER → 2024-08-14 | Outpatient (CLI) | payer OTHER, MEDICARE ==
[~2024-08-14] MED LIST changes: +EMPA25TA PO; -ESOM20CA31 PO; -INSLAN SQ; -INSU100C14 SQ; +INSU100V SQ; +INSU100V37 SQ; +LEVO-70 PO; -LEVO750T46 PO; +LINA5TAB PO; +LOSA1TAB37 PO; +Nexium PO; +TIRZ5PEN SQ
== END | disposition home or self-care (01) ==
LOC: SHCH 10:13
PROVIDERS: ATTEND Student in an Organized Health Care Education/Training Program
DX: I87.2 Venous insufficiency (chronic) (peripheral) (principal); I70.213 Atherosclerosis of native arteries of extremities with intermittent claudication, bilateral legs
CPT/HCPCS: 93925; 93970